=== PATIENT | female | born 1985 | race American Indian/Alaskan Native ===

== ENCOUNTER 2019-08-07 20:10 | Outpatient (CLI) | payer MEDICAID ==
[2019-08-07] MEDS ORDERED: BUTORPHANOL 2 MG/1 ML INJ IV ONE (21:02)
[2019-08-07] MEDS ORDERED: LACTATED RINGERS 1,000 ML IV ONE (21:02)
[2019-08-07] MEDS ORDERED: ONDANSETRON 4 MG/2 ML INJ IV ONE (21:02)
[2019-08-07] MEDS ORDERED: LACTATED RINGERS 1,000 ML IV SCH (22:00)
[2019-08-07 22:37] LABS: Amphetamine Screen,Urine PRESUMPTIVE NEGATIVE; Benzodiazepines Screen,Urine PRESUMPTIVE NEGATIVE; Cannabinoid Screen,Urine PRESUMPTIVE NEGATIVE; Cocaine Screen,Urine PRESUMPTIVE NEGATIVE; Methadone Screen,Urine PRESUMPTIVE NEGATIVE; Opiate Screen,Urine PRESUMPTIVE NEGATIVE
[2019-08-07 22:44] LABS: Bacteria,Urine 1+ /HPF (Negative); Bilirubin,Urine NEG (Negative); Blood,Urine NEG (Negative); Color,Urine Yellow (Yellow); Mucus,Urine FEW /HPF; Protein,Urine <15 mg/dL mg/dL (Negative)
[2019-08-07 22:48] VITALS: BP 130/71
== END 2019-08-07 23:02 | disposition home or self-care (01) ==
LOC: TRG 20:10
PROVIDERS: ATTEND Obstetrics & Gynecology
DX: O62.9 Abnormality of forces of labor, unspecified (principal); O21.2 Late vomiting of pregnancy; O26.893 Other specified pregnancy related conditions, third trimester; R19.7 Diarrhea, unspecified; Z3A.37 37 weeks gestation of pregnancy
CPT/HCPCS: 59025; 80307; 81001; 96361; 96374; 96375; J0595; J2405; J7120; 96360; J0690

== ENCOUNTER 2019-08-09 16:50 | Outpatient (CLI) | payer MEDICAID ==
[2019-08-09] MEDS ORDERED: LACTATED RINGERS 1,000 ML IV SCH (18:00)
[2019-08-09 18:13] LABS: Bacteria,Urine 2+ /HPF (Negative); Mucus,Urine FEW /HPF
[2019-08-09 18:21] LABS: Bilirubin,Urine Negative (Negative); Color,Urine Straw (Yellow)
[2019-08-09 18:22] LABS: Blood,Urine Negative (Negative); Protein,Urine <30 mg dL mg/dL (Negative)
[2019-08-09 19:21] VITALS: BP 133/79
--- NOTE | 2019-08-09 21:04 | Ultrasound Report ---
ULTRASOUND OBSTETRIC LIMITED ULTRASOUND BIOPHYSICAL PROFILE INDICATION / CLINICAL INFORMATION: f/u fall. Clinical Gestational Age (GA): 37.5 weeks.days COMPARISON: None available. FINDINGS: BREATHING MOVEMENT = 2 GROSS BODY MOVEMENT = 2 TONE = 2 QUALITATIVE AMNIOTIC FLUID VOLUME = 2 TOTAL BIOPHYSICAL SCORE = 8/8 HEART RATE (beats per minute): 136 AMNIOTIC FLUID INDEX (cm) = 11.0 (normal = 7-24 cm) PRESENTATION: Cephalic. ADDITIONAL FINDINGS: None. IMPRESSION: 1. Biophysical Score = 8/8 2. No acute sonographic abnormality. Signer Name: Amor Stroud MD Signed: 08/09/2019 9:00 PM Workstation Name: [id number]
== END 2019-08-09 21:26 | disposition home or self-care (01) ==
LOC: TRG 16:50 → LD 16:50 → TRG 16:52
PROVIDERS: ATTEND Obstetrics & Gynecology
DX: O26.893 Other specified pregnancy related conditions, third trimester (principal); R10.9 Unspecified abdominal pain; W19.XXXA Unspecified fall, initial encounter; Y93.89 Activity, other specified; Y92.89 Other specified places as the place of occurrence of the external cause; Y99.8 Other external cause status; Z3A.37 37 weeks gestation of pregnancy
CPT/HCPCS: 76815; 76819; 81001

== ENCOUNTER 2019-08-11 17:10 | Outpatient (CLI) | payer MEDICAID ==
[2019-08-11 19:03] LABS: Hematocrit 33.3 % (30.3-42.9); Hemoglobin 11.3 gm/dl (10.1-14.3); Mean Corpuscular HGB Conc 34 % (30-34); Mean Corpuscular Volume 84 fl (79-97); Platelet Count 209 K/mm3 (140-440); Red Blood Count 3.96 M/mm3 (3.65-5.03); Red Cell Distribution Width 14.5 % (13.2-15.2)
[2019-08-11 19:27] LABS: Alanine Aminotransferase 9 units/L (7-56); Uric Acid 3.7 mg/dL (3.5-7.6)
[2019-08-11 20:00] VITALS: BP 135/84
[2019-08-11 20:06] LABS: Bacteria,Urine 2+ /HPF (Negative); Bilirubin,Urine NEG (Negative); Blood,Urine MOD (Negative); Color,Urine Yellow (Yellow); Protein,Urine <15 mg/dL mg/dL (Negative); Urobilinogen,Urine < 2.0 mg/dL (<2.0)
== END 2019-08-11 20:14 | disposition home or self-care (01) ==
LOC: TRG 17:10
PROVIDERS: ATTEND Obstetrics & Gynecology
DX: O13.3 Gestational [pregnancy-induced] hypertension without significant proteinuria, third trimester (principal); Z3A.38 38 weeks gestation of pregnancy
CPT/HCPCS: 36415; 59025; 81001; 82565; 83615; 84450; 84460; 84550; 85027

== ENCOUNTER 2019-08-18 05:36 | Inpatient (IN) | payer MEDICAID ==
[2019-08-18] MEDS ORDERED: LACTATED RINGERS 1,000 ML ONE (05:56)
[2019-08-18] MEDS ORDERED: BICITRA ORAL LIQD 30ML PO ONE (06:40)
[2019-08-18] MEDS ORDERED: LACTATED RINGERS 1,000 ML IV ONE (06:43)
[2019-08-18] MEDS ORDERED: METOCLOPRAMIDE 10 MG/2 ML INJ IV NR ×2 (07:00→10:30)
[2019-08-18] MEDS ORDERED: ceFAZolin/STERILE WATER 2 GM/20 ML SYRINGE IV NR (07:00)
[2019-08-18 07:01] LABS: Basophils % (Auto) 0.3 % (0.0-1.8); Eosinophils # (Auto) 0.1 K/mm3 (0.0-0.4); Eosinophils % (Auto) 0.4 % (0.0-4.3); Hematocrit 34.7 % (30.3-42.9); Hemoglobin 11.6 gm/dl (10.1-14.3); Lymphocytes # (Auto) 2.9 K/mm3 (1.2-5.4); Lymphocytes % (Auto) 22.5 % (13.4-35.0); Mean Corpuscular HGB Conc 33 % (30-34); Mean Corpuscular Volume 84 fl (79-97); Monocytes % (Auto) 7.8 % (0.0-7.3); Platelet Count 216 K/mm3 (140-440); Red Blood Count 4.16 M/mm3 (3.65-5.03); Red Cell Distribution Width 14.6 % (13.2-15.2)
[2019-08-18] MEDS ORDERED: OXYTOCIN 20 UNIT/1000ML DRIP 40,000 MILLIUNITS/2,000 ML BAG IV ONE (07:07)
--- NOTE | 2019-08-18 07:08 | Anesthesia Consultation ---
Anesthesia Consult and Med Hx Date of service: 08/18/19 - Airway Anesthetic Teeth Evaluation: Good ROM Head & Neck: Adequate Mental/Hyoid Distance: Adequate Mallampati Class: Class II Intubation Access Assessment: Probably Good - Pulmonary Exam CTA: Yes - Cardiac Exam Cardiac Exam: RRR - Pre-Operative Health Status ASA Pre-Surgery Classification: ASA2 Proposed Anesthetic Plan: Spinal - Pulmonary Hx Asthma: No COPD: No Hx Pneumonia: No - Cardiovascular System Hx Hypertension: No - Central Nervous System Hx Seizures: Yes (2018) Hx Psychiatric Problems: No - Endocrine Hx Renal Disease: No Hx End Stage Renal Disease: No Hx Hypothyroidism: No Hx Hyperthyroidism: No - Hematic Hx Anemia: No Hx Sickle Cell Disease: No - Other Systems Hx Alcohol Use: No
--- NOTE | 2019-08-18 07:08 | Anesthesia Day of Surgery ---
Anesthesia Day of Surgery - Day of Surgery Patient Examined: Yes Patient H&P Reviewed: Yes Patient is NPO: Yes
[2019-08-18] MEDS ORDERED: FAMOTIDINE 20 MG/2 ML INJ IV ONE (07:10)
--- NOTE | 2019-08-18 07:40 | History and Physical Report ---
History of Present Illness Date of examination: 08/18/19 Date of admission: 08/18/19 05:36 Chief complaint: Repeat C Section with BTL History of present illness: Pt is a 33yo BF EDC 08/25/19; EGA 39 0/7 weeks presents for a Repeat C Section with Bilateral Tubal Ligation. She received care at [facility] since 22 weeks and co-managed by [facility] for previous C Section and Morbid Obesity. records are available and GBS is Negative. Past History Past Medical History: no pertinent history Past Surgical History: section Social history: no significant social history, - Obstetrical History Expected Date of Delivery: 08/25/19 Actual Gestation: 39 Week(s) 0 Day(s) : 5 Medications and Allergies Allergies Allergy/AdvReac Type Severity Reaction Status Date / Time No Known Allergies Allergy Verified 08/09/19 17:25 Home Medications Medication Instructions Recorded Confirmed Last Taken Type Pnv No.133/Ferrous Fum/Folic [Sv 1 tab PO DAILY 08/09/19 08/09/19 08/08/19 18:00 History Vitamins Tablet] 1 Active Meds: Active Medications Cefazolin Sodium (Ancef/Sterile Water 2 Gm/20 Ml) 2 gm IV PREOP NR Stop: 08/18/19 23:45 Lactated Ringer's (Lactated Ringers) 1,000 mls @ 999 mls/hr IV BOLUS ONE Stop: 08/18/19 07:43 Last Admin: 08/18/19 07:05 Dose: 999 mls/hr Documented by: Metoclopramide HCl (Reglan) 10 mg IV PREOP NR Stop: 08/18/19 23:45 Last Admin: 08/18/19 07:13 Dose: 10 mg Documented by: Review of Systems All systems: negative - Vital Signs Vital signs: Vital Signs Temp Resp 98.2 F 18 08/18/19 06:08 08/18/19 06:08 Temp Pulse Resp BP Pulse Ox 98.2 F 18 08/18/19 06:08 08/18/19 06:08 - Physical Exam Breasts: Positive: deferred Cardiovascular: Regular rate Lungs: Positive: Clear to auscultation Abdomen: Positive: normal appearance Genitourinary (Female): Positive: normal external genitalia Uterus: Positive: enlarged Extremities: Positive: normal - Obstetrical FHR: category 1 Uterine Contraction Monitor Mode: External Results Result Diagrams: 08/18/19 06:18 Abnormal lab results 08/18/19 Range/Units 06:18 WBC 12.8 H (4.5-11.0) K/mm3 [place] % (Auto) 7.8 H (0.0-7.3) % Sunflower # 1.0 H (0.0-0.8) K/mm3 Seg Neutrophils # 8.8 H (1.8-7.7) K/mm3 All other labs normal. Assessment and Plan - Patient Problems (1) 39 weeks gestation of Onset Date: 08/18/19 Current Visit: Yes Status: Acute Plan to address problem: A: IUP @ 39 0/7 weeks Previous C Section Desires permanent sterilization P: Admit to L&D for a Repeat C Section with Bilateral Tubal Ligation (2) Previous section Onset Date: 08/18/19 Current Visit: Yes Status: Acute (3) Consultation for sterilization Onset Date: 08/18/19 Current Visit: Yes Status: Acute
[2019-08-18] MEDS ORDERED: KETAMINE/STERILE WATER 50 MG/ML SYRINGE ONE (09:10)
--- NOTE | 2019-08-18 10:11 | Operative Report ---
Operative Report Operative Report: Date of procedure: 08/18/2019 Pre-operative diagnosis: 1. Intrauterine at 39 0/7 weeks 2. Previ ous C Section 3. Desires permanent sterilization Post-operative diagnosis: same Procedure name(s): 1. Repeat low transverse section 2. Bilateral Tubal Ligation Surgeon: Darren Waller MD Centerless Grinder: None Anesthesia: Spinal anesthesia by Wolfgang Calderon CRNA EBL: 800 mL's Findings: A 3162 gm female Apgars 7 at 1 minute 9 at 5 minutes. Clear amniotic fluid. Normal uterus with lower uterine segment adhesions and normal tubes and ovaries bilaterally. Procedure: After the patient was prepped and draped in usual sterile fashion, and after satisfactory level of spinal anesthesia was obtained, the skin knife was used to make a transverse skin incision through the previous skin scar. The incision was incised down to layer of the fascia, which was nicked in the midline and extended laterally using the Bovie cautery. The rectus muscles were dissected off the rectus fascia both superiorly and inferiorly. The rectus bellies in the midline, and the peritoneum was entered under direct visualization. The peritoneal incision was extended superiorly and inferiorly. Extensive lower uterine segment adhesions were taken down, and a bladder flap w as created and the bladder blade was then placed. The uterus was scored in a curvilinear linear fashion, entered in the midline revealing clear amniotic fluid. The 's head was delivered onto the surgical field, and the oropharynx and nasopharynx were bulb suctioned. The rest of the infant's body was delivered, cord was doubly clamped and cut and the was handed to the awaiting respiratory team. The placenta was manually removed from the uterus, and the uterus removed from its normal anatomical position. After gentle uterine lavage, the incision was inspected and found to be without extensions. It was then closed in 2 layers using 0 Vicryl suture in a running interlocking fashion, the second layer imbricating the first. After good hemostasis was achieved, copious amounts or irrigation was performed, and the gutters were suctioned free of blood and blood clots. Attention was then turned to the tubal ligation. First the right fallopian tube was grasped using the [place], and after identifying the fimbriated end of the tube, the Filsche clip was applied to the proximal portion of the right tube. The same procedure was performed on the left fallopian tube. The left fallopian tube was grasped using the [place], and after identifying the fimbriated end of the tube, the Filsche clip was applied to the proximal portion of the left tube. The uterus was then returned to its normal anatomical position. Next, the peritoneum was re-approximated using 3-0 Vicryl suture in a running interlocking fashion, and then the rectus muscles were loosely re-approximated using 3-0 Vicryl suture in a [id number] configuration. The fascia was then re-approximated using 0 Vicryl suture in running interlocking fashion. The subcutaneous layer was made hemostatic using Bovie cautery, and the skin edges re-approximated using 4-0 Vicryl suture in a sub-cuticular fashion. Patient tolerated the procedure well was transported to recovery in stable condition.
[2019-08-18] MEDS ORDERED: MORPHINE 4 MG/1 ML INJ IV PRN (10:13)
[2019-08-18] MEDS ORDERED: BICITRA ORAL LIQD 30ML PO NR (10:30)
[2019-08-18] MEDS ORDERED: FAMOTIDINE 20 MG/2 ML INJ IV NR (10:30)
--- NOTE | 2019-08-18 10:42 | Post Anesthesia Evaluation ---
- Post Anesthesia Evaluation Patient Participated: Yes Airway Patent: Yes Stable Respiratory Function: Yes Nausea/Vomiting: No Temp > 96.8F: Yes Pain Manageable: Yes Adequeate Hydration: Yes Anesthesia Complications: No Block Receding Appropriately: Yes
[2019-08-18] MEDS ORDERED: LANOLIN/ZINC/DIMETHICONE (LANSINOH) 7 GM TP PRN (11:00)
[2019-08-18] MEDS ORDERED: ACETAMINOPHEN 325 MG TAB PO PRN (11:00)
[2019-08-18] MEDS ORDERED: LACTATED RINGERS 1,000 ML IV SCH (11:00)
[2019-08-18] MEDS ORDERED: NALOXONE 0.4 MG/1 ML INJ IV PRN (11:00)
[2019-08-18] MEDS ORDERED: SIMETHICONE 80 MG CHEW TAB PO PRN (11:00)
[2019-08-18] MEDS ORDERED: DEXMEDETOMIDINE 200 MCG/2 ML VIAL IV ONE (11:00)
[2019-08-18] MEDS ORDERED: KETOROLAC 30 MG/1 ML INJ IV PRN (11:00)
[2019-08-18] MEDS ORDERED: D5W/LACTATED RINGERS 1,000 ML IV SCH (11:00)
[2019-08-18] MEDS ORDERED: OXYTOCIN 20 UNIT/1000ML DRIP 20 UNITS/1,000 ML BAG IV SCH ×2 (11:00)
[2019-08-18] MEDS ORDERED: ONDANSETRON 4 MG/2 ML INJ ONE (11:00)
[2019-08-18] MEDS ORDERED: ONDANSETRON 4 MG/2 ML INJ IV PRN (11:00)
[2019-08-18] MEDS ORDERED: WITCH HAZEL/ GLYCERIN PAD TP PRN (11:00)
[2019-08-18] MEDS ORDERED: KETOROLAC 30 MG/1 ML INJ ONE (11:00)
[2019-08-18] MEDS ORDERED: MORPHINE 2 MG/1 ML INJ IV PRN (11:30)
[2019-08-18] MEDS: oxyCODONE /ACETAMINOPHEN 5-325MG TAB PO PRN ×2 (12:29→19:48)
[2019-08-18] MEDS: IBUPROFEN 800 MG TAB PO PRN (16:05)
[2019-08-18] MEDS: ceFAZolin/NS 1 GM/50 ML 1 GM/50 ML BAG IV SCH (16:09)
[2019-08-18] MEDS ORDERED: SENNOSIDES 8.6 MG TAB PO PRN (22:00)
[2019-08-18] MEDS ORDERED: MAGNESIUM HYDROXIDE (MOM) ORAL LIQD UDC PO PRN (22:00)
[2019-08-18] MEDS: HYDROcodone/ACETAMINOPHEN 5-325 MG TAB PO PRN (22:12)
[2019-08-18 23:09] LABS: Hematocrit 27.3 % (30.3-42.9); Hemoglobin 9.1 gm/dl (10.1-14.3)
[2019-08-19] MEDS: IBUPROFEN 800 MG TAB PO PRN ×3 (01:16→21:02)
[2019-08-19] MEDS: ceFAZolin/NS 1 GM/50 ML 1 GM/50 ML BAG IV SCH (01:16)
[2019-08-19] MEDS: oxyCODONE /ACETAMINOPHEN 5-325MG TAB PO PRN ×2 (03:44→14:59)
[2019-08-19] MEDS ORDERED: TETANUS,DIPH,PERTUSS(ACELL) VACCINE 0.5 ML SYRINGE IM ONE (06:00)
[2019-08-19] MEDS: PRENATAL VIT27-FE FUMARATE-FOLIC ACID VIT TAB PO SCH (09:20)
[2019-08-19] MEDS: FERROUS SULFATE 325 MG TAB PO SCH (09:20)
--- NOTE | 2019-08-19 10:20 | Progress Note ---
Assessment and Plan - Patient Problems (1) 39 weeks gestation of Onset Date: 08/18/19 Current Visit: Yes Status: Resolved (2) Previous section Onset Date: 08/18/19 Current Visit: Yes Status: Resolved (3) Consultation for sterilization Onset Date: 08/18/19 Current Visit: Yes Status: Resolved (4) Status post Onset Date: 08/19/19 Current Visit: Yes Status: Resolved Plan to address problem: A: S/P Repeat C Section with BTL - POD #1 Doing well Asymptomatic anemia - stable P: Continue RPOC Anticipate discharge in 24-48hrs (5) Acute blood loss anemia Onset Date: 08/19/19 Current Visit: Yes Status: Resolved Subjective - Subjective Date of service: 08/19/19 Principal diagnosis: s/p Repeat C Section with BTL - POD #1 Interval history: Pt is feeling well without complaints. Bleeding improved. She is tolerating a reg diet without nausea or vomiting. Patient reports: appetite normal, voiding normally, pain well controlled, flatus, ambulating normally, no dizzy ambulation, no nauseated [place]: doing well, bottle feeding Objective - Vital Signs Latest vital signs: Vital Signs Temp Pulse Resp BP BP Pulse Ox 08/19/19 08:08 97.9 F 68 20 104/61 98 08/19/19 05:18 98.0 F 73 20 105/50 95 08/19/19 04:44 18 08/19/19 03:44 18 08/19/19 02:16 18 08/19/19 01:16 18 08/19/19 00:35 98.1 F 75 20 120/74 100 08/18/19 23:12 18 08/18/19 22:12 18 08/18/19 21:11 97.5 F L 68 20 107/63 99 08/18/19 20:48 18 08/18/19 19:48 18 08/18/19 16:06 97.7 F 68 19 94/59 100 08/18/19 11:43 97.5 F L 70 18 108/65 98 08/18/19 11:15 73 18 117/75 99 08/18/19 11:00 70 15 115/70 98 08/18/19 10:45 75 23 118/70 97 08/18/19 10:30 71 18 111/65 97 08/18/19 10:25 73 18 107/65 98 08/18/19 10:20 75 18 111/64 96 Intake and Output 08/18/19 08/19/19 08/19/19 22:59 06:59 14:59 Intake Total 170 120 Output Total 700 200 Balance -530 -80 Intake: IV 50 ANCEF/NS 1 GM/50 ML 1 gm 50 In 50 ml @ 100 mls/hr IV Q8H [facility] Rx#:[id number] Intake, Free Water 120 120 Output: Urine 700 200 Indwelling Catheter 700 Void 200 Other: Total, Output Amount 300 200 # Voids Void 1 - Exam Breasts: Present: deferred Abdomen: Present: normal appearance, soft Uterus: Present: normal, firm, fundal height below umbilicus Extremities: Present: normal Incision: Present: normal, dry, intact, dressed - Labs Labs: Abnormal lab results 08/18/19 Range/Units 22:50 Hgb 9.1 L (10.1-14.3) gm/dl Hct 27.3 L D (30.3-42.9) % Laboratory Tests 08/18/19 08/18/19 08/18/19 06:18 06:18 06:18 WBC 12.8 H RBC 4.16 Hgb 11.6 Hct 34.7 MCV 84 MCH 28 MCHC 33 RDW 14.6 Plt Count 216 Lymph % (Auto) 22.5 [place] % (Auto) 7.8 H Eos % (Auto) 0.4 Baso % (Auto) 0.3 Lymph # 2.9 [place] # 1.0 H Eos # 0.1 Baso # 0.0 Seg Neutrophils % 69.0 Seg Neutrophils # 8.8 H Syphilis IgG Antibody Non-reactive Blood Type O POSITIVE Antibody Screen Negative 08/18/19 22:50 WBC RBC Hgb 9.1 L Hct 27.3 L D MCV MCH MCHC RDW Plt Count Lymph % (Auto) [place] % (Auto) Eos % (Auto) Baso % (Auto) Lymph # [place] # Eos # Baso # Seg Neutrophils % Seg Neutrophils # Syphilis IgG Antibody Blood Type Antibody Screen
[2019-08-19] MEDS ORDERED: MEASLES, MUMPS & RUBELLA 12,500 UNIT/0.5 ML VACCINE SUB-Q ONE (11:00)
[2019-08-20] MEDS: HYDROcodone/ACETAMINOPHEN 5-325 MG TAB PO PRN (06:25)
[2019-08-20] MEDS: PRENATAL VIT27-FE FUMARATE-FOLIC ACID VIT TAB PO SCH (09:41)
[2019-08-20] MEDS: oxyCODONE /ACETAMINOPHEN 5-325MG TAB PO PRN (09:41)
[2019-08-20] MEDS: FERROUS SULFATE 325 MG TAB PO SCH (09:41)
--- NOTE | 2019-08-20 10:16 | Progress Note ---
Assessment and Plan - Patient Problems (1) 39 weeks gestation of Onset Date: 08/18/19 Current Visit: Yes Status: Resolved (2) Previous section Onset Date: 08/18/19 Current Visit: Yes Status: Resolved (3) Consultation for sterilization Onset Date: 08/18/19 Current Visit: Yes Status: Resolved (4) Status post Onset Date: 08/19/19 Current Visit: Yes Status: Resolved Plan to address problem: A: S/P Repeat C Section with BTL - POD #2 Doing well Asymptomatic anemia - stable Post epidural headache P: Consult anesthesia for possible spinal headache Anticipate discharge tomorrow. (5) Acute blood loss anemia Onset Date: 08/19/19 Current Visit: Yes Status: Resolved Subjective - Subjective Date of service: 08/20/19 Principal diagnosis: s/p Repeat C Section with BTL - POD #2 Interval history: Pt is not feeling well today, complaining of headaches and dizziness upon standi ng. Bleeding improved. She is tolerating a reg diet without nausea or vomiting. Patient reports: appetite normal, voiding normally, dizzy ambulation, pain well controlled, flatus, no ambulating normally, no nauseated : doing well, bottle feeding Objective - Vital Signs Latest vital signs: Vital Signs Temp Pulse Resp BP Pulse Ox 08/20/19 09:41 20 08/20/19 07:20 18 08/20/19 06:25 18 08/20/19 00:17 98.5 F 81 20 127/72 100 08/19/19 22:02 18 08/19/19 21:02 18 08/19/19 16:15 97.3 F L 72 20 111/54 100 08/19/19 12:55 99.0 F 88 20 126/83 99 Intake and Output 08/19/19 08/20/19 08/20/19 22:59 06:59 14:59 Intake Total 360 600 Output Total 240 Balance 360 360 Intake: Oral 240 360 Intake, Free Water 120 240 Output: Urine 240 Void 240 Other: Total, Intake Amount 240 120 Total, Output Amount 240 # Voids Void 1 1 - Exam Abdomen: Present: normal appearance, soft Uterus: Present: normal, firm, fundal height below umbilicus Extremities: Present: normal Incision: Present: normal, dry, intact, dressed - Labs Labs: Laboratory Tests 08/18/19 08/18/1908/18/20 06:18 06:18 06:18 WBC 12.8 H RBC 4.16 Hgb 11.6 Hct 34.7 MCV 84 MCH 28 MCHC 33 RDW 14.6 Plt Count 216 Lymph % (Auto) 22.5 [place] % (Auto) 7.8 H Eos % (Auto) 0.4 Baso % (Auto) 0.3 Lymph # 2.9 [place] # 1.0 H Eos # 0.1 Baso # 0.0 Seg Neutrophils % 69.0 Seg Neutrophils # 8.8 H Syphilis IgG Antibody Non-reactive Blood Type O POSITIVE Antibody Screen Negative 08/18/19 22:50 WBC RBC Hgb 9.1 L Hct 27.3 L D MCV MCH MCHC RDW Plt Count Lymph % (Auto) [place] % (Auto) Eos % (Auto) Baso % (Auto) Lymph # [place] # Eos # Baso # Seg Neutrophils % Seg Neutrophils # Syphilis IgG Antibody Blood Type Antibody Screen
--- NOTE | 2019-08-20 16:08 | Progress Note ---
Subjective Date of service: 08/20/19 (blood patch epidural) Principal diagnosis: s/p Repeat C Section with BTL - POD #2 Interval history: called to pt's room to evaluate to spinal headache. She stated that headache is worse sitting and standing, feels better laying down. She had been drinking co ffee and water, but headache still persist without relief from pain medications. Informed consent, risks vs benefit, questions answered, time out. Patient in sitting position. Sterile prep and drape was performed. [5] ml of 1% lidocaine skin wheal at L[3]- L [4]. 18-gauge Touhy epidural needle was advanced to loss of resistance with air technique. Negative CSF negative blood. 15 ml sterile blood obtained from fresh IV. Pt stated pain relief w/o back pain. pt tolerated procedure well. VSS. Objective - Constitutional Vitals: Vital Signs - 12hr 08/20/19 08/20/19 08/20/19 06:25 07:20 09:41 Temperature Pulse Rate Respiratory 18 18 20 Rate Blood Pressure O2 Sat by Pulse Oximetry 08/20/19 10:55 Temperature 98.8 F Pulse Rate 80 Respiratory 20 Rate Blood Pressure 112/48 O2 Sat by Pulse 97 Oximetry - Labs CBC & Chem 7: 08/18/19 22:50
[2019-08-20] MEDS: IBUPROFEN 800 MG TAB PO PRN (16:34)
[2019-08-21] MEDS: IBUPROFEN 800 MG TAB PO PRN (02:34)
--- NOTE | 2019-08-21 10:01 | Progress Note ---
Assessment and Plan - Patient Problems (1) 39 weeks gestation of Onset Date: 08/18/19 Current Visit: Yes Status: Resolved (2) Previous section Onset Date: 08/18/19 Current Visit: Yes Status: Resolved (3) Consultation for sterilization Onset Date: 08/18/19 Current Visit: Yes Status: Resolved (4) Status post Onset Date: 08/19/19 Current Visit: Yes Status: Resolved Plan to address problem: A: S/P Repeat C Section with BTL - POD #3 Doing well Asymptomatic anemia - stable Post epidural headache - resolved P: May go home today. (5) Acute blood loss anemia Onset Date: 08/19/19 Current Visit: Yes Status: Resolved Subjective - Subjective Date of service: 08/21/19 Principal diagnosis: s/p Repeat C Section with BTL - POD #3 Interval history: Pt is feeling well today, headaches and dizziness resolved with spinal blood patch. She is tolerating a reg diet without nausea or vomiting, ambulating and voiding without difficulty. Patient reports: appetite normal, voiding normally, pain well controlled, flatus, ambulating normally, no dizzy ambulation, no nauseated : doing well, bottle feeding Objective - Vital Signs Latest vital signs: Vital Signs Temp Pulse Resp BP BP Pulse Ox 08/21/19 08:55 98.6 F 86 20 131/90 08/21/19 00:35 98.2 F 87 18 114/58 98 08/20/19 16:34 20 08/20/19 15:42 98.8 F 86 14 126/83 100 08/20/19 10:55 98.8 F 80 20 112/48 97 Intake and Output 08/20/19 08/21/19 08/21/19 22:59 06:59 14:59 Intake Total 720 420 240 Balance 720 420 240 Intake: Oral 480 240 Intake, Free Water 240 420 Other: Total, Intake Amount 480 240 # Voids Void 2 1 1 # Bowel Movements 0 - Exam Abdomen: Present: normal appearance, soft Uterus: Present: normal, firm, fundal height below umbilicus Extremities: Present: normal Incision: Present: normal, dry, intact
--- NOTE | 2019-08-21 10:04 | Discharge Summary ---
Providers - Providers Date of Admission: 08/18/19 05:36 Date of discharge: 08/21/19 Attending physician: BRITTNY THORNTON Primary care physician: BRITTNY THORNTON Hospitalization Reason for admission: section, IUP at term, other (Desires permanent sterilization) Delivery: Procedure: section, bilateral tubal ligation, repeat low transverse Episiotomy: none Laceration: none Incision: normal, dry, intact Other procedures: none complications: spinal headache (resolved with blood patch) Discharge diagnosis: IUP at term delivered [place] baby: female Hospital course: Pt is a 33yo BF EDC 08/25/19; EGA 39 0/7 weeks who presented for a Repeat C Section with Bilateral Tubal Ligation. She received care at [facility] since 22 weeks and co-managed by [facility] for previous C Section and Morbid Obesity. She underwent an uncomplicated Repeat C Section with BTL and course was complicated by a spinal headache which was resolved with a blood patch. By POD #3 she was tolerating a reg diet without nausea or vomiting, ambulating and voiding without difficulty. She was therefore discharged to home on POD #3 in stable condition, and will follow up in the office in 2 weeks for an incision check. Condition at discharge: Good Disposition: DC-01 TO HOME OR SELFCARE - Discharge Diagnoses (1) 39 weeks gestation of Status: Resolved (2) Previous section Status: Resolved (3) Consultation for sterilization Status: Resolved (4) Status post Status: Resolved (5) Acute blood loss anemia Status: Resolved Plan - Discharge Medications Prescriptions: Ferrous Sulfate [Feosol 325 MG tab] 325 mg PO BID #60 tablet Ibuprofen [Motrin 800 MG tab] 800 mg PO Q6H PRN #30 tablet PRN Reason: Pain, Mild (1-3) HYDROcodone/APAP 5-325 [[place] 5-325 mg TAB] 1 each PO Q6HR PRN #30 tablet PRN Reason: Pain, Moderate (4-6) Vit-Fe Fumar-FA [ Vitamin] 1 each PO QDAY #30 tablet - Provider Discharge Summary Activity: routine, no sex for 6 weeks, no heavy lifting 4 weeks, no strenuous exercise Diet: routine Instructions: routine Additional instructions: [] Smoking cessation referral if applicable(refer to patient education folder for contact #) [] Refer to [facility] Booklet Call your doctor immediately for: * Fever > 100.5 * Heavy vaginal bleeding ( >1 pad per hour) * Severe persistent headache * Shortness of breath * Reddened, hot, painful area to leg or breast * Drainage or odor from incision. * Keep incision clean and dry at all times and follow doctor's instructions regarding bathing/showering Follow up in the office in 2 weeks for incision check - Follow up plan Follow up: BRITTNY THORNTON MD [Primary Care Provider] - 14 Days WINNIE MILLER CNM [Advanced Practice Nurse] - 14 Days Forms: [facility] Discharge Summary
[2019-08-21] MEDS: PRENATAL VIT27-FE FUMARATE-FOLIC ACID VIT TAB PO SCH (11:22)
[2019-08-21] MEDS: FERROUS SULFATE 325 MG TAB PO SCH (11:22)
[2019-08-21 11:33] VITALS: BP 137/77
== END 2019-08-21 11:34 | disposition home or self-care (01) | DRG 765 ==
LOC: APU 05:36 → UNDOADMIN 05:36 → APU 09:17 → UNDOADMIN 09:17 → OB 11:42
PROVIDERS: ADMIT Obstetrics & Gynecology; ATTEND Obstetrics & Gynecology
PROC: 10D00Z1 Extraction of Products of Conception, Low, Open Approach (ICD-10-PCS; principal; 2019-08-18)
PROC: 0UN90ZZ Release Uterus, Open Approach (ICD-10-PCS; 2019-08-18)
PROC: 0UL70CZ Occlusion of Bilateral Fallopian Tubes with Extraluminal Device, Open Approach (ICD-10-PCS; 2019-08-18)
PROC: 3E0234Z Introduction of Serum, Toxoid and Vaccine into Muscle, Percutaneous Approach (ICD-10-PCS; 2019-08-19)
PROC: 3E0134Z Introduction of Serum, Toxoid and Vaccine into Subcutaneous Tissue, Percutaneous Approach (ICD-10-PCS; 2019-08-19)
DX: O99.214 Obesity complicating childbirth (principal); D62 Acute posthemorrhagic anemia; O34.211 Maternal care for low transverse scar from previous cesarean delivery; E66.01 Morbid (severe) obesity due to excess calories; O99.89 Other specified diseases and conditions complicating pregnancy, childbirth and the puerperium; N73.6 Female pelvic peritoneal adhesions (postinfective); O74.5 Spinal and epidural anesthesia-induced headache during labor and delivery; Z3A.39 39 weeks gestation of pregnancy; Z37.0 Single live birth; Z23 Encounter for immunization; Z30.2 Encounter for sterilization
CPT/HCPCS: 36415; 85014; 85018; 85025; 86592; 86850; 86900; 86901; G0378; J0690; J1885; J2405; J2590; J2765; J3490; J7120; J7121

== ENCOUNTER 2020-04-24 23:42 | Emergency (ER) | payer OTHER, MEDICAID ==
[2020-04-25 00:55] VITALS: BP 127/81
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
[2020-04-25] MEDS ORDERED: ONDANSETRON 4 MG ODT TAB PO ONE (05:22)
[2020-04-25] MEDS ORDERED: HYDROcodone/ACETAMINOPHEN 5-325 MG TAB PO ONE (05:22)
[2020-04-25] MEDS ORDERED: IBUPROFEN 600 MG TAB PO ONE (05:22)
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
== END 2020-04-25 06:10 | disposition home or self-care (01) ==
LOC: ED 23:42
DX: S29.011A Strain of muscle and tendon of front wall of thorax, initial encounter (principal); M62.830 Muscle spasm of back; R56.9 Unspecified convulsions; Z79.1 Long term (current) use of non-steroidal anti-inflammatories (NSAID); Z98.890 Other specified postprocedural states; Z79.899 Other long term (current) drug therapy; V49.49XA Driver injured in collision with other motor vehicles in traffic accident, initial encounter; Y93.89 Activity, other specified; Y92.410 Unspecified street and highway as the place of occurrence of the external cause; Y99.8 Other external cause status
CPT/HCPCS: 71046; 72125; Q0162